=== PATIENT | female | born 1990 | race Two or more races ===

== ENCOUNTER 2017-04-22 15:55 | Emergency (ER) | payer MEDICAID ==
[~2017-04-22] VITALS: Ht 162.6 cm; Wt 68.0 kg
[2017-04-22 15:59] VITALS: BP 118/78
== END 2017-04-22 17:02 | disposition home or self-care (01) ==
LOC: ED 16:52
DX: K08.89 Other specified disorders of teeth and supporting structures (principal)
CPT/HCPCS: 99283

== ENCOUNTER 2017-05-25 09:09 | Emergency (ER) | payer MEDICAID ==
[~2017-05-25] VITALS: Ht 162.6 cm; Wt 69.0 kg
[2017-05-25 09:47] LABS: HCG UR OBC PASS
[2017-05-25] MEDS ORDERED: SODIUM CHLORIDE FLUSH 10ML SYR IVF ONE (10:30)
[2017-05-25 10:48] LABS: BLOOD UREA NITROGEN 7 mg/dL (7-18)
[2017-05-25 10:57] LABS: ASPARTATE AMINO TRANSFERASE 13 U/L (15-37)
[2017-05-25 11:25] VITALS: BP 110/72
== END 2017-05-25 12:01 | disposition home or self-care (01) ==
LOC: ED 10:19
DX: O26.891 Other specified pregnancy related conditions, first trimester (principal); R10.84 Generalized abdominal pain; Z3A.01 Less than 8 weeks gestation of pregnancy
CPT/HCPCS: 36415; 76801; 80053; 81001; 81025; 83605; 84702; 85025; 87086; 99285